=== PATIENT | male | born 1965 | race African-American/Black ===

== ENCOUNTER 2017-06-29 22:36 | Emergency (ER) | payer OTHER, BC ==
[~2017-06-29] VITALS: Ht 182.9 cm; Wt 115.0 kg
[2017-06-29 22:38] VITALS: BP 151/73; PULSE 83; RESP 16; TEMP 98.6; O2SAT 95
[2017-06-29] MEDS ORDERED: NAPROXEN 500 MG TAB PO ONE (23:15)
[2017-06-29] MEDS ORDERED: CYCLOBENZAPRINE HCL 10 MG TAB PO ONE (23:15)
[2017-06-29] MEDS ORDERED: DICL75TA PO (23:16)
[2017-06-29] MEDS ORDERED: CYCL10TA PO (23:16)
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
== END 2017-06-29 23:55 | disposition home or self-care (01) ==
LOC: NEPD 22:36
DX: S39.012A Strain of muscle, fascia and tendon of lower back, initial encounter (principal); F31.9 Bipolar disorder, unspecified; V43.92XA Unspecified car occupant injured in collision with other type car in traffic accident, initial encounter; Z79.899 Other long term (current) drug therapy
CPT/HCPCS: 72100; 99283

== ENCOUNTER 2017-08-01 12:31 | Emergency (ER) | payer BC, OTHER ==
[~2017-08-01] VITALS: Ht 180.3 cm; Wt 127.0 kg
[~2017-08-01 12:31] MED LIST: CYCL10TA PO; DICL75TA PO
[2017-08-01 12:32] VITALS: BP 144/78; PULSE 80; RESP 18; TEMP 99.1; O2SAT 94
[2017-08-01] MEDS ORDERED: CYCL10TA PO (15:23)
[2017-08-01] MEDS ORDERED: PRED20 PO (15:23)
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
[2017-08-01] MEDS ORDERED: ORPHENADRINE INJ 60 MG/2 ML AMP IM ONE (15:30)
[2017-08-01] MEDS ORDERED: DEXAMETHASONE SOD PHOS 4 MG/ML VIAL IM ONE (15:30)
[2017-08-01] MEDS ORDERED: ACETAMINOPHEN/HYDROcodone 325 MG/5 MG TAB PO ONE (15:30)
== END 2017-08-01 15:46 | disposition home or self-care (01) ==
LOC: NEPK 12:31
DX: M54.42 Lumbago with sciatica, left side (principal); M54.2 Cervicalgia; F12.90 Cannabis use, unspecified, uncomplicated; Z72.0 Tobacco use
CPT/HCPCS: 96372; 99284; J1100; J2360